=== PATIENT | female | born 1980 | race Caucasian/White ===

== ENCOUNTER 2020-02-04 06:04 | Inpatient (IN) | payer MEDICAID, SELFPAY ==
[2020-02-04] VITALS (10 sets, daily range): BP systolic 97–126; BP diastolic 44–72; PULSE 55–82; RESP 13–21; TEMP 36.3–37; O2SAT 95–100
[2020-02-04 06:35] LABS: Abs Immature Grans 0.14 10^3/uL (0.0-0.06); Absolute Basophil Count 0.03 10^3/uL (0.0-0.2); Absolute Eosinophil Count 0.17 10^3/uL (0.0-0.7); Absolute Lymphocyte Count 2.73 10^3/uL (1.2-3.4); Absolute Monocyte Count 0.58 10^3/uL (0.1-0.8); Absolute Neutrophil Count 6.16 10^3/uL (1.2-6.7); Basophils % 0.3; Eosinophils % 1.7; HCT 35.7 % (36.0-46.0); HGB 11.7 g/dL (11.2-15.7); Immature Grans % 1.4; Lymphocytes % 27.8; MCH 29.3 pg (27.0-33.0); MCHC 32.8 % (32.0-36.0); MCV 89.5 fL (80-95); MPV 9.3 fL (8.0-11.0); Monocytes % 5.9; Neutrophils % 62.9; Nucleated RBC 0 %; Platelet Count 156 10^3/uL (130-400); RBC 3.99 10^6/uL (3.93-5.22); RDW 13.7 % (11.7-14.6); RDW-SD 44.6 fL; WBC 9.81 10^3/uL (4.4-10.8)
[2020-02-04] MEDS: Lactated Ringers 1,000 ML 125 ML IV (06:39)
[2020-02-04] MEDS: CLINDAMYCIN 900 MG/50 ML BAG 50 MG IVPB (06:46)
--- NOTE | 2020-02-04 08:45 | W.PM.OBCSECT ---
Date of service: 02/04/20 Time of Service: 08:45 Operative Note Operative Note Delivery Method: Scheduled DATE OF PROCEDURE: 02/04/20 PRE-OP DIAGNOSES: at 39 weeks gestation prior section POST-OP DIAGNOSES: same PROCEDURE: Repeat low transverse section SURGEON: Sadia Zepeda Assisting Surgeon: Natanael Rangel Anesthesia: spinal Estimated blood loss (mL): 600 Pathology: none sent Complications: None Patient was transported to: floor Patient's condition: stable Indications: Term , prior sections, declines trial of labor Findings: Delivered viable male 5 pounds 15 ounces. Normal tubes, ovaries, uterus Procedure Description: Patient is a 39-year-old female who had care with [facility]. she was seen by us in approximately 36 weeks for discussion of repeat section. The risks, benefits, and alternatives of the procedure have been explained to the patient in full informed consent was obtained. She was taken to the operating suite where she was placed in the seated position and spinal anesthesia administered, tested, and found to be adequate. She was then placed in the dorsal supine position with leftward tilt and prepped and draped in the usual sterile fashion. Amaro catheter had been inserted for continuous bladder drainage as per pneumatic compression stockings placed for DVT prophylaxis. At this point a Pfannenstiel skin incision was made through her previous Pfannenstiel scar. Incision was carried down to the underlying fascia which was nicked in the midline and extended laterally. The fascia was then meticulously dissected away from the rectus muscles. Rectus muscle split in the midline. Peritoneum identified, tented up and entered sharply. Peritoneal incision was then incised superiorly and inferiorly and the bladder blade was inserted. The vesicouterine peritoneum was identified tented up and meticulously sharply dissected away from the lower uterine segment. A low transverse uterine incision was made with a scalpel and extended bluntly laterally. The vertex was delivered there was evidence of nuchal cord x1 which was loose. Shoulders followed with ease. Three-vessel cord was noted, clamped x2, and cut. The male was vigorous and handed off to the waiting pediatric team. At this point placenta was expressed from the uterus, uterus exteriorized and cleared of all clot and debris. Uterine incision was closed using 4-0 Monocryl suture in a running locked fashion [id number] stitch placed at the right corner due to the vessel that was hemostatic. After achieving hemostasis, the second layer of an imbricating stitch of 0 Monocryl was placed. At this point abdomen was irrigated with copious amounts of normal saline. Ovaries appeared normal. As to the fallopian tubes. Uterus was returned to the abdomen and again uterine incision inspected and found to be hemostatic. At this point fascial incision was closed using 0 Vicryl suture in a running fashion. Subcutaneous tissue was irrigated with copious amounts of normal saline and reapproximated with simple interrupted sutures. The skin edge was then reapproximated using 4-0 Monocryl in a subcuticular fashion. Steri-Strips and dressing were placed. Uterus was firm at the umbilicus. Patient was taken to the floor in stable condition. EBL: 600 Complications: None apparent Crystalloid: 800 cc Urine: 200 cc, clear yellow. Infant Gender: Male
[2020-02-04] MEDS: Lactated Ringers 1,000 ML 120 ML IV (11:30)
[2020-02-04] MEDS: Ketorolac 30 MG/ML VIAL IVP ×2 (14:03→20:18)
[2020-02-04] MEDS: Normal Saline Flush 10 ML SYR IV (14:03)
[2020-02-05] VITALS: BP 129/57; PULSE 71; RESP 18; TEMP 36.9
[2020-02-05] MEDS: Ketorolac 30 MG/ML VIAL IVP ×2 (01:44→08:12)
[2020-02-05] MEDS: Normal Saline Flush 10 ML SYR IV ×2 (01:44→08:12)
[2020-02-05 06:49] LABS: Abs Immature Grans 0.12 10^3/uL (0.0-0.06); Absolute Basophil Count 0.01 10^3/uL (0.0-0.2); Absolute Eosinophil Count 0.06 10^3/uL (0.0-0.7); Absolute Lymphocyte Count 2.88 10^3/uL (1.2-3.4); Absolute Monocyte Count 0.75 10^3/uL (0.1-0.8); Basophils % 0.1; Eosinophils % 0.5; HCT 29.9 % (36.0-46.0); Immature Grans % 1.1; Lymphocytes % 25.2; MCH 29.9 pg (27.0-33.0); MCHC 33.4 % (32.0-36.0); MCV 89.3 fL (80-95); Monocytes % 6.6; Neutrophils % 66.5; Nucleated RBC 0 %; Platelet Count 127 10^3/uL (130-400); RBC 3.35 10^6/uL (3.93-5.22); RDW 14.1 % (11.7-14.6); RDW-SD 45.4 fL; WBC 11.42 10^3/uL (4.4-10.8)
[2020-02-05 06:52] LABS: Absolute Neutrophil Count 7.59 10^3/uL (1.2-6.7)
[2020-02-05 08:05] VITALS: BP 105/67; PULSE 76; RESP 16; TEMP 36.8; O2SAT 97
[2020-02-05] MEDS: Docusate Sodium 100 MG CAP PO ×2 (08:19→18:45)
--- NOTE | 2020-02-05 08:24 | OBPPV_ITS ---
Date of service: 02/05/20 Time of Service: 08:25 Assessment and Plan Assessment and plan (1) Status post repeat low transverse section: Status: Acute Assessment and plan: Postoperative day 1 status post repeat low transverse section. Mom and baby are both doing well. Anticipate normal postoperative course and discharge to home tomorrow. Subjective Subjective Patient comments: No complaints, Pain well controlled and Tolerating diet baby status: Doing well, Nursing well, Rooming in and Strong Bonding Observed feeding status: Exclusively breast feeding Narrative: Patient seen this morning. She is doing well. Overall she has had a phenomenal birthing experience. Her is cluster feeding but breast- feeding well. Exam Physical Exam Vital signs: Temp Pulse Resp BP Pulse Ox 98.4 F 71 18 129/57 L 95 02/05/20 00:00 02/05/20 00:00 02/05/20 00:00 02/05/20 00:00 02/04/20 16:00 Constitutional Constitutional: no acute distress HEENT Exam HEENT Exam: Normal Neck Exam Neck Exam: Normal Respiratory Exam Respiratory Exam: Normal Cardiovascular Exam Cardiovascular Exam: Normal Fundal Exam Fundus: Below Umbilicus and Firm Neurological Exam Neurological Exam: Normal Results Hemoglobin/Hematocrit: Hgb 10.0 g/dL (11.2-15.7) L 02/05/20 06:35 Hct 29.9 % (36.0-46.0) L 02/05/20 06:35 Abnormal Lab Findings: Abnormal Labs 02/04/20 02/05/20 06:29 06:35 WBC 11.42 H RBC 3.35 L Hgb 10.0 L Hct 35.7 L 29.9 L Plt Count 127 L Absolute Neutrophils 7.59 H
[2020-02-05 12:55] VITALS: BP 104/65; PULSE 68; RESP 16; TEMP 36.8; O2SAT 96
[2020-02-05] MEDS: Acetaminophen 325 MG TAB 650 MG PO ×2 (18:45→23:00)
[2020-02-05] MEDS: Ibuprofen 600 MG TAB PO ×2 (18:45→23:00)
[2020-02-05 20:00] VITALS: BP 108/71; PULSE 66; RESP 16; TEMP 37.1; O2SAT 98
[2020-02-05 23:06] VITALS: BP 110/74; PULSE 66; RESP 18; TEMP 36.6
[2020-02-06] MEDS: Acetaminophen 325 MG TAB 650 MG PO ×3 (03:35→13:01)
[2020-02-06] MEDS: Ibuprofen 600 MG TAB PO ×2 (03:36→09:50)
[2020-02-06 07:10] VITALS: BP 116/77; PULSE 78; RESP 18; TEMP 36.8; O2SAT 98
[2020-02-06] MEDS: Docusate Sodium 100 MG CAP PO (07:26)
--- NOTE | 2020-02-06 10:10 | W.PM.OBPNV1 ---
Date of service: 02/06/20 Time of Service: 10:10 Assessment and Plan Assessment and plan (1) Status post repeat low transverse section: Status: Acute Assessment and plan: Postop day #2. Discharged home today. Follow-up in 2 weeks. Subjective Subjective Interval history: Patient is doing well day #2. Ambulating, tolerating regular diet and oral pain medication with stable vital signs. She is breast-feeding without difficulty. Patient comments: No complaints, Pain well controlled, Tolerating diet and [place] present baby status: Doing well and Nursing well [place] feeding status: Exclusively breast feeding Exam Physical Exam Vital signs: Temp Pulse Resp BP Pulse Ox 98.2 F 78 18 116/77 98 02/06/20 07:10 02/06/20 07:10 02/06/20 07:10 02/06/20 07:10 02/06/20 07:10 Constitutional Constitutional: no acute distress HEENT Exam HEENT Exam: Normal Neck Exam Neck Exam: Normal Respiratory Exam Respiratory Exam: Normal Cardiovascular Exam Cardiovascular Exam: Normal Abdominal Exam Comments: Incision is clean dry and intact. Healing well. No signs or symptoms of infection Detailed Skin Exam Skin: Present intact Results Hemoglobin/Hematocrit: Hgb 10.0 g/dL (11.2-15.7) L 02/05/20 06:35 Hct 29.9 % (36.0-46.0) L 02/05/20 06:35 Abnormal Lab Findings: Abnormal Labs 02/04/20 02/05/20 06:29 06:35 WBC 11.42 H RBC 3.35 L Hgb 10.0 L Hct 35.7 L 29.9 L Plt Count 127 L Absolute Neutrophils 7.59 H
--- NOTE | 2020-02-06 10:14 | DSE_ITS ---
DS: Diagnosis Discharge Diagnosis (1) Status post repeat low transverse section: Status: Acute Discharge Plan Disposition Patient Disposition: HOME Condition: Good Discharge Details Reason For Visit: C SECTION Admit Date/Time: 02/04/20 06:04 Admit Provider: Sadia Zepeda Attending Provider: Sadia Zepeda Primary Care Provider: [facility] Course Hospital Course: Patient had a scheduled repeat low transverse section. She had uncomplicated postoperative course was discharged home postoperative day #2, ambulating, tolerating regular diet and oral pain medication. She has stable vital signs. Home Meds and New Rx's Prescriptions: New ibuprofen [IBU] 800 mg tablet 800 mg PO Q8H Qty: 30 RF: 1 No Action Pnv No.95/Ferrous Fum/Folic AC [ Multivitamin Tablet] 1 EACH tablet 1 ea PO DAILY RF: 0 acetaminophen 500 mg Tablet 1,000 mg PO QID PRNRF: 0 alum-mag hydroxide-simeth [Mylanta Maximum Strength] 400-400-40 mg/5 mL Suspension 10 ml PO TID PRNRF: 0 Discharge Instructions Stand Alone Forms: BC Discharge Instruc Activity:: Activity as Tolerated Equipment/Supplies:: No Equipment Needed Diet:: Normal Diet OB:DS Summary Summary Delivery Method: Scheduled complications OB DS: none Procedures: Repeat low transverse section Contraception Discussed Contraception Discussed: Yes, Infant Gender-Baby A: Male weight: 5 lb 12.241 oz Status at Discharge Functional status at discharge: independent ambulation Overall status at discharge: patient is back to baseline Mental Status: mental status grossly normal Speech and Movement: speech and movement normal Mood: congruent mood Affect: normal affect Time Spent with Patient providing and/or coordinating discharge services: Less than 30 minutes Quality: VTE Deep Vein Thrombosis/Pulmonary Embolism Present on Admission: No Hospital Course Patient was admitted for scheduled repeat low transverse section. Procedure was uncomplicated. She had normal postoperative course and was discharged home postoperative day #2. She will be seen back in the office in 2 weeks for incision check. Prescription for Motrin was sent to the pharmacy for her. Exam Physical Exam Vital signs: Temp Pulse Resp BP Pulse Ox 98.2 F 78 18 116/77 98 02/06/20 07:10 02/06/20 07:10 02/06/20 07:10 02/06/20 07:10 02/06/20 07:10 [facility] Medical History Advanced maternal age (AMA) in Surgical History H/O wisdom tooth extraction History of section History of cholecystectomy Status post repeat low transverse section Social History Smoking/Tobacco Use Status: Former Tobacco Use Drug use: Never Substance use type: does not use Details: Alcohol when not Do you feel safe at home: Yes Do you feel safe in your relationship?: Yes History History 2 Para 1 Hx # Term Pregnancies Multiple births Hx # Pregnancies Ectopic pregnancies AB induced Hx Number of Living Children AB spontaneous DS: Data Vitals/I&O Vitals and I&O: Vital Signs Temperature 98.2 F 02/06/20 07:10 Temperature Source Oral 02/06/20 07:10 Pulse 78 02/06/20 07:10 Pulse Rhythm Regular 02/06/20 07:10 Respiratory Rate 18 02/06/20 07:10 Respiratory Depth Normal 02/06/20 03:39 Blood Pressure 116/77 02/06/20 07:10 Blood Pressure Mean 90 02/06/20 07:10 Pulse Oximetry 98 02/06/20 07:10 Oxygen Delivery Method Room Air 02/06/20 07:10 Oxygen Flow Rate 0 02/06/20 07:10 Pain Level 2 02/06/20 09:50 Comment 02/04/20 09:50 Intake & Output 02/05/20 02/05/20 02/06/20 11:59 23:59 11:59 Intake Total 1800 / 1800 Output Total 750 / 1450 700 / 1450 Balance -750 / -1450 -700 / -1450 1800 / 1800 Intake: IV 1200 / 1200 Oral 600 / 600 Output: Urine 750 / 1450 700 / 1450 Other: Urine Color Yellow Urine Appearance Clear
[2020-02-06 13:04] VITALS: BP 104/66; PULSE 76; RESP 18; TEMP 36.9; O2SAT 98
== END 2020-02-06 14:10 | disposition home or self-care (01) | DRG 788 ==
LOC: PDS 06:05 → OBS 09:09
PROVIDERS: Admitting Provider Obstetrics & Gynecology; PCP Nurse Practitioner; Visit Provider Obstetrics & Gynecology
PROC: 10D00Z1 Extraction of Products of Conception, Low, Open Approach (ICD-10-PCS; CPT 59514; principal; 2020-02-04 07:30)
DX: O34.211 Maternal care for low transverse scar from previous cesarean delivery (principal); Z37.0 Single live birth; O69.81X0 Labor and delivery complicated by cord around neck, without compression, not applicable or unspecified; O09.523 Supervision of elderly multigravida, third trimester; O99.62 Diseases of the digestive system complicating childbirth; K21.9 Gastro-esophageal reflux disease without esophagitis; Z67.10 Type A blood, Rh positive
CPT/HCPCS: 59514; 86850; 86900; 86901; 85025; J0131; J1100; J1580; J1885; J2370; J2405; J3010